=== PATIENT | male | born 1980 | race Caucasian/White ===

== ENCOUNTER 2019-07-07 16:49 | Emergency (ER) | payer MEDICARE, MEDICAID, SELFPAY ==
[2019-07-07 16:58] VITALS: BP 154/91; PULSE 89; RESP 20; TEMP 37.4; O2SAT 97
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
== END 2019-07-07 17:25 | disposition home or self-care (01) ==
PROVIDERS: Emergency Provider Nurse Practitioner; PCP Family Medicine
DX: B00.1 Herpesviral vesicular dermatitis (principal); F31.9 Bipolar disorder, unspecified; G47.33 Obstructive sleep apnea (adult) (pediatric); E11.42 Type 2 diabetes mellitus with diabetic polyneuropathy; Z90.49 Acquired absence of other specified parts of digestive tract; F17.200 Nicotine dependence, unspecified, uncomplicated
CPT/HCPCS: 99211; G0463

== ENCOUNTER 2019-08-03 13:53 | Outpatient (RCR) | payer MEDICARE, MEDICAID, SELFPAY | END 2019-09-07 12:00 | disposition home or self-care (01) | LOC: ANHDMC 13:53 | PROVIDERS: PCP Family Medicine; Visit Provider Family Medicine | DX: E11.65 Type 2 diabetes mellitus with hyperglycemia (principal); Z71.89 Other specified counseling | CPT/HCPCS: G0108 ==

== ENCOUNTER 2019-08-12 17:55 | Emergency (ER) | payer MEDICARE, MEDICAID, SELFPAY ==
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
[2019-08-12 18:10] VITALS: BP 158/76; PULSE 78; RESP 23; TEMP 37; O2SAT 97
== END 2019-08-12 18:27 | disposition home or self-care (01) ==
PROVIDERS: Emergency Provider Nurse Practitioner Family; PCP Family Medicine
DX: H61.22 Impacted cerumen, left ear (principal); G47.33 Obstructive sleep apnea (adult) (pediatric); E11.42 Type 2 diabetes mellitus with diabetic polyneuropathy; F17.210 Nicotine dependence, cigarettes, uncomplicated; F17.290 Nicotine dependence, other tobacco product, uncomplicated; I50.9 Heart failure, unspecified; I11.0 Hypertensive heart disease with heart failure; F95.2 Tourette's disorder; M19.90 Unspecified osteoarthritis, unspecified site; F31.9 Bipolar disorder, unspecified; Z79.82 Long term (current) use of aspirin
CPT/HCPCS: 69210; 99212; G0463